=== PATIENT | female | born 1975 | race Caucasian/White ===

== ENCOUNTER 2016-10-05 14:36 | Inpatient (IN) | payer MEDICAID ==
[~2016-10-05] VITALS: Ht 170.2 cm; Wt 80.6 kg
[~2016-10-05 14:36] MED LIST: ALBU18 IN; ASPI81TA27 PO; CARV6.2551 PO; FURO40TA4 PO; IPRIH INH; LISI-275 PO; NITR0.4S29 SL; POTA8TAB2 PO; PRAV20TA3 PO
[2016-10-05] MEDS ORDERED: FUROSEMIDE 40 MG/4 ML VIAL IV ONE (15:15)
[2016-10-05 15:23] LABS: Basophils # (auto) 0 uL; Basophils % (auto) 0.6 % (0.0-2.0); Eosinophils # (auto) 0.1 uL; Eosinophils % (auto) 1.1 % (0.0-7.0); Hematocrit 39.6 % (36.0-46.0); Hemoglobin 13.2 g/dL (12.2-16.2); Lymphocytes # (auto) 2.1 uL; Lymphocytes % (auto) 24.4 % (10.0-50.0); Mean Corpuscular Hemoglobin 30.2 pg (28.0-32.0); Mean Corpuscular Hgb Conc. 33.3 g/dL (32.0-36.0); Mean Corpuscular Volume 90.7 fL (80.0-100.0); Mean Platelet Volume 7.1 fL (7.4-10.4); Monocytes # (auto) 0.8 uL; Monocytes % (auto) 9.2 % (0.0-12.0); Neutrophils # (auto) 5.5 uL; Neutrophils % (auto) 64.7 % (37.0-80.0); Platelet Count (auto) 325 10^3/uL (140-450); Red Cell Distribution Width 15.2 % (11.6-16.0); White Blood Cell 8.6 10^3/uL (4.4-10.8)
[2016-10-05 15:55] LABS: Albumin 3.1 g/dL (3.4-5.0); Anion Gap 9 (5-15); Aspartate Aminotransferase 15 U/L (15-37); BUN/Creatinine Ratio 20.6; Blood Urea Nitrogen 14 mg/dL (7-18); Calcium 8.4 mg/dL (8.5-10.1); Carbon Dioxide 28 mmol/L (21-32); Chloride 103 mmol/L (98-107); GFR African American 123 mL/min; GFR Non-African American 102 mL/min; Glucose 95 mg/dL (74-106); Potassium 3.9 mmol/L (3.5-5.1); Sodium 140 mmol/L (136-145)
[2016-10-05 16:00] LABS: Alkaline Phosphatase 62 U/L (45-117); Bilirubin, Total 0.3 mg/dL (0.2-1.0); Total Protein 7.2 g/dL (6.4-8.2)
[2016-10-05] MEDS ORDERED: PROMETHAZINE HCL 25 MG/ML 1ML IV PRN (16:00)
[2016-10-05] MEDS ORDERED: ACETAMINOPHEN 500 MG TAB PO PRN (16:00)
[2016-10-05] MEDS ORDERED: TEMAZEPAM 15 MG CAP PO PRN (16:00)
[2016-10-05] MEDS ORDERED: NITROGLYCERIN 0.4 MG SL TAB SL PRN (16:00)
[2016-10-05] MEDS ORDERED: ALBUTEROL SULFATE IN SCH (16:00)
[2016-10-05] MEDS ORDERED: LORazepam 0.5 MG TAB PO PRN (16:00)
[2016-10-05] MEDS ORDERED: HYDROcodone-ACET 5/325MG TAB PO PRN (16:00)
[2016-10-05] MEDS ORDERED: MORPHINE SULF INJ 2 MG/ML SYRINGE 1ML IV PRN ×2 (16:00)
[2016-10-05 16:03] LABS: B-Type Natriuretic Peptide 606.7 pg/mL (0-100); Temperature: 22.9 C (20.0-25.0)
[2016-10-05] MEDS ORDERED: ASPirin 81 mg TAB PO ONE (16:30)
[2016-10-05] MEDS ORDERED: LISINOPRIL 5 MG TAB PO ONE (16:30)
[2016-10-05] MEDS ORDERED: ENOXAPARIN SOD 40 MG/0.4 ML SYRINGE SC ONE (16:30)
[2016-10-05] MEDS: IPRATROPIUM BROM 0.5 MG/2.5ML INH SOL NEB SCH (18:00)
[2016-10-05] MEDS ORDERED: IPRATROPIUM BROMIDE INH SCH (18:00)
[2016-10-05] MEDS: ALBUTEROL SULF 2.5 MG/0.5ML(0.5%) NEB SOLN NEB SCH (18:00)
[2016-10-05 21:26] VITALS: BP 115/66
[2016-10-05] MEDS: POTASSIUM CHL 20 Meq TABLET PO SCH (21:49)
[2016-10-05] MEDS: SODIUM CHLOR 0.9% PF (SALINE LOCK) 10ML VIAL IV SCH (21:49)
[2016-10-05] MEDS: PRAVASTATIN SODIUM 20 MG TAB PO SCH (21:49)
[2016-10-05] MEDS: CARVEDILOL 3.125 MG TAB PO SCH (21:50)
[2016-10-05] MEDS ORDERED: PATIENTS OWN MEDICATION (Carvedilol 6.25 MG) PO SCH ×2 (22:00)
[2016-10-05] MEDS ORDERED: BUTACAP35 PO (22:56)
[2016-10-05] MEDS ORDERED: SACU1TAB7 PO (22:56)
[2016-10-05] MEDS ORDERED: FLUN0.02 (22:56)
[2016-10-05] MEDS ORDERED: MAGN250T8 PO (22:56)
[2016-10-05] MEDS ORDERED: TRAZ50TA2 PO (22:56)
[2016-10-05] MEDS ORDERED: CHOL20009 PO (22:56)
[2016-10-05] MEDS ORDERED: DIGO0.2570 PO (22:56)
[2016-10-05 23:03] VITALS: BP 101/67
[2016-10-06] VITALS (7 sets, daily range): BP systolic 93–108; BP diastolic 55–65
[2016-10-06] MEDS: IPRATROPIUM BROM 0.5 MG/2.5ML INH SOL NEB SCH ×4 (00:06→18:45)
[2016-10-06] MEDS: ALBUTEROL SULF 2.5 MG/0.5ML(0.5%) NEB SOLN NEB SCH ×4 (00:06→18:47)
[2016-10-06] MEDS: SODIUM CHLOR 0.9% PF (SALINE LOCK) 10ML VIAL IV SCH ×3 (05:23→22:00)
[2016-10-06 06:04] LABS: Basophils # (auto) 0.1 uL; Basophils % (auto) 0.8 % (0.0-2.0); Eosinophils # (auto) 0.1 uL; Hematocrit 36.3 % (36.0-46.0); Hemoglobin 12.1 g/dL (12.2-16.2); Lymphocytes # (auto) 2.1 uL; Lymphocytes % (auto) 33.2 % (10.0-50.0); Mean Corpuscular Hemoglobin 30.4 pg (28.0-32.0); Mean Corpuscular Hgb Conc. 33.2 g/dL (32.0-36.0); Mean Corpuscular Volume 91.7 fL (80.0-100.0); Mean Platelet Volume 7.4 fL (7.4-10.4); Monocytes # (auto) 0.6 uL; Monocytes % (auto) 9.4 % (0.0-12.0); Neutrophils # (auto) 3.4 uL; Neutrophils % (auto) 54.6 % (37.0-80.0); Platelet Count (auto) 270 10^3/uL (140-450); Red Cell Distribution Width 14.7 % (11.6-16.0); White Blood Cell 6.3 10^3/uL (4.4-10.8)
[2016-10-06 06:48] LABS: B-Type Natriuretic Peptide 401.37 pg/mL (0-100); Temperature: 22.5 C (20.0-25.0)
[2016-10-06] MEDS: LISINOPRIL 5 MG TAB PO SCH (09:28)
[2016-10-06] MEDS: CARVEDILOL 3.125 MG TAB PO SCH ×2 (09:29→22:35)
[2016-10-06] MEDS: ENOXAPARIN SOD 40 MG/0.4 ML SYRINGE SC SCH (09:30)
[2016-10-06] MEDS: FUROSEMIDE 40 MG/4 ML VIAL IV SCH (09:30)
[2016-10-06] MEDS: POTASSIUM CHL 20 Meq TABLET PO SCH ×2 (09:31→22:34)
[2016-10-06] MEDS: ASPirin 81 mg TAB PO SCH (09:31)
[2016-10-06] MEDS: DOBUTamine 1000MCG/ML 250 ML IV SCH (17:41)
[2016-10-06] MEDS: PRAVASTATIN SODIUM 20 MG TAB PO SCH (22:34)
[2016-10-07] VITALS (7 sets, daily range): BP systolic 98–114; BP diastolic 54–67
[2016-10-07] MEDS: IPRATROPIUM BROM 0.5 MG/2.5ML INH SOL NEB SCH ×4 (00:30→19:29)
[2016-10-07] MEDS: ALBUTEROL SULF 2.5 MG/0.5ML(0.5%) NEB SOLN NEB SCH ×4 (00:30→19:29)
[2016-10-07] MEDS: DOBUTamine 1000MCG/ML 250 ML IV SCH ×3 (04:56→22:39)
[2016-10-07] MEDS: SODIUM CHLOR 0.9% PF (SALINE LOCK) 10ML VIAL IV SCH ×3 (06:00→22:41)
[2016-10-07] MEDS: ASPirin 81 mg TAB PO SCH (09:30)
[2016-10-07] MEDS: POTASSIUM CHL 20 Meq TABLET PO SCH ×2 (09:30→22:41)
[2016-10-07] MEDS: ENOXAPARIN SOD 40 MG/0.4 ML SYRINGE SC SCH (09:31)
[2016-10-07] MEDS: FUROSEMIDE 40 MG/4 ML VIAL IV SCH (09:31)
[2016-10-07] MEDS: CARVEDILOL 3.125 MG TAB PO SCH ×2 (09:35→22:41)
[2016-10-07] MEDS: LISINOPRIL 5 MG TAB PO SCH (09:35)
[2016-10-07] MEDS: SPIRONOLACTONE 25 MG TAB PO SCH (13:49)
[2016-10-07 14:01] LABS: Urine RBC None Seen /hpf (0 - 4)
[2016-10-07 14:14] LABS: Urine Bilirubin Negative (Negative); Urine Blood Negative /uL (Negative); Urine Color Yellow (Yellow); Urine Glucose Normal (Normal); Urine Ketone Negative (Negative); Urine Nitrite Negative (Negative); Urine Squamous Epithelial Cell FEW /hpf (<5); Urine Urobilinogen Normal (Negative); Urine pH 6.5 (5.0-8.0)
[2016-10-07 15:47] LABS: Basophils # (auto) 0 uL; Basophils % (auto) 0.3 % (0.0-2.0); Eosinophils # (auto) 0.1 uL; Eosinophils % (auto) 0.6 % (0.0-7.0); Hematocrit 40.6 % (36.0-46.0); Hemoglobin 13.6 g/dL (12.2-16.2); Lymphocytes # (auto) 1.4 uL; Lymphocytes % (auto) 13.6 % (10.0-50.0); Mean Corpuscular Hemoglobin 30.7 pg (28.0-32.0); Mean Corpuscular Hgb Conc. 33.5 g/dL (32.0-36.0); Mean Corpuscular Volume 91.6 fL (80.0-100.0); Mean Platelet Volume 7.5 fL (7.4-10.4); Monocytes # (auto) 0.6 uL; Monocytes % (auto) 5.8 % (0.0-12.0); Neutrophils % (auto) 79.7 % (37.0-80.0); Platelet Count (auto) 348 10^3/uL (140-450); Red Cell Distribution Width 14.9 % (11.6-16.0); White Blood Cell 10.1 10^3/uL (4.4-10.8)
[2016-10-07 16:12] LABS: Potassium 3.9 mmol/L (3.5-5.1)
[2016-10-07 16:14] LABS: BUN/Creatinine Ratio 18.6
[2016-10-07] MEDS ORDERED: BACLOFEN 10 MG TAB PO PRN (16:30)
[2016-10-07 17:04] LABS: B-Type Natriuretic Peptide 212.53 pg/mL (0-100)
[2016-10-07 17:05] LABS: Temperature: 21.6 C (20.0-25.0)
[2016-10-07] MEDS: PRAVASTATIN SODIUM 20 MG TAB PO SCH (22:41)
[2016-10-08] MEDS: IPRATROPIUM BROM 0.5 MG/2.5ML INH SOL NEB SCH ×3 (00:04→11:36)
[2016-10-08] MEDS: ALBUTEROL SULF 2.5 MG/0.5ML(0.5%) NEB SOLN NEB SCH ×3 (00:04→11:36)
[2016-10-08 05:00] VITALS: BP 123/67
[2016-10-08] MEDS: SODIUM CHLOR 0.9% PF (SALINE LOCK) 10ML VIAL IV SCH (05:56)
[2016-10-08 06:06] LABS: Basophils # (auto) 0 uL; Basophils % (auto) 0.5 % (0.0-2.0); Eosinophils # (auto) 0.1 uL; Eosinophils % (auto) 1.1 % (0.0-7.0); Hematocrit 39.2 % (36.0-46.0); Lymphocytes % (auto) 29.8 % (10.0-50.0); Mean Corpuscular Hemoglobin 30.2 pg (28.0-32.0); Mean Corpuscular Volume 91.3 fL (80.0-100.0); Mean Platelet Volume 7.6 fL (7.4-10.4); Monocytes # (auto) 0.6 uL; Monocytes % (auto) 9.1 % (0.0-12.0); Neutrophils % (auto) 59.5 % (37.0-80.0); Platelet Count (auto) 305 10^3/uL (140-450); Red Cell Distribution Width 14.7 % (11.6-16.0); White Blood Cell 6.8 10^3/uL (4.4-10.8)
[2016-10-08 06:28] LABS: BUN/Creatinine Ratio 18.6; Calcium 8.9 mg/dL (8.5-10.1)
[2016-10-08 08:00] VITALS: BP 101/49
[2016-10-08 08:22] VITALS: BP 101/49
[2016-10-08 08:55] VITALS: BP 101/49
[2016-10-08] MEDS: ASPirin 81 mg TAB PO SCH (09:09)
[2016-10-08] MEDS: DOBUTamine 1000MCG/ML 250 ML IV SCH (09:09)
[2016-10-08] MEDS: ENOXAPARIN SOD 40 MG/0.4 ML SYRINGE SC SCH (09:09)
[2016-10-08] MEDS: SPIRONOLACTONE 25 MG TAB PO SCH (09:09)
[2016-10-08] MEDS: POTASSIUM CHL 20 Meq TABLET PO SCH (09:09)
[2016-10-08] MEDS: FUROSEMIDE 40 MG/4 ML VIAL IV SCH (09:10)
[2016-10-08] MEDS: CARVEDILOL 3.125 MG TAB PO SCH (09:14)
[2016-10-08] MEDS: LISINOPRIL 5 MG TAB PO SCH (09:14)
[2016-10-08 12:30] VITALS: BP 132/75
[2016-10-08] MEDS ORDERED: SPIR25TA88 PO (12:37)
[2016-10-08] MEDS ORDERED: FURO40TA PO (12:37)
[2016-10-08 13:04] VITALS: BP 132/75
== END 2016-10-08 13:30 | disposition home health service (06) | DRG 194 ==
LOC: ER 14:36 → TELE 14:37 → TELE-CENTR 20:52
PROVIDERS: ADMIT Internal Medicine; ATTEND Internal Medicine
DX: I11.0 Hypertensive heart disease with heart failure (principal); I42.9 Cardiomyopathy, unspecified; E78.5 Hyperlipidemia, unspecified; F17.210 Nicotine dependence, cigarettes, uncomplicated; I50.43 Acute on chronic combined systolic (congestive) and diastolic (congestive) heart failure; I34.1 Nonrheumatic mitral (valve) prolapse; Z95.810 Presence of automatic (implantable) cardiac defibrillator; Z83.3 Family history of diabetes mellitus; Z82.49 Family history of ischemic heart disease and other diseases of the circulatory system; Z88.1 Allergy status to other antibiotic agents; Z91.040 Latex allergy status
CPT/HCPCS: 36415; 71010; 80048; 80053; 81001; 82550; 83735; 83880; 84443; 84484; 85025; 85379; 85652; 93005; 94640; 94761; G0434

== ENCOUNTER 2016-12-06 13:03 | Inpatient (IN) | payer MEDICAID ==
[~2016-12-06] VITALS: Ht 170.2 cm; Wt 82.0 kg
[2016-12-06] VITALS (11 sets, daily range): BP systolic 85–106; BP diastolic 35–56
[~2016-12-06 13:03] MED LIST changes: +BUTACAP35 PO; +CHOL20009 PO; +DIGO0.2570 PO; +FLUN0.02; +FURO40TA PO; -FURO40TA4 PO; +MAGN250T8 PO; +SACU1TAB7 PO; +SPIR25TA88 PO; +TRAZ50TA2 PO
[2016-12-06] MEDS ORDERED: IBUPROFEN 800 MG TAB PO ONE ×2 (13:10→13:30)
[2016-12-06 13:50] LABS: Hematocrit 40.8 % (36.0-46.0); Hemoglobin 14.1 g/dL (12.2-16.2); Mean Corpuscular Hemoglobin 30.9 pg (28.0-32.0); Mean Corpuscular Hgb Conc. 34.6 g/dL (32.0-36.0); Mean Corpuscular Volume 89.3 fL (80.0-100.0); Mean Platelet Volume 7.4 fL (7.4-10.4); Platelet Count (auto) 331 10^3/uL (140-450); Red Cell Distribution Width 14.5 % (11.6-16.0); SUSPECT VIEW TRANSMISSION; White Blood Cell 25.7 10^3/uL (4.4-10.8)
[2016-12-06 13:56] LABS: Metamyelocytes % 0; Myelocytes % 0; Promyelocytes % 0; Reactive Lymphocytes 0
[2016-12-06 14:05] LABS: Albumin 3.3 g/dL (3.4-5.0); BUN/Creatinine Ratio 12.4; Calcium 8.6 mg/dL (8.5-10.1)
[2016-12-06 14:08] LABS: Bilirubin, Total 1.2 mg/dL (0.2-1.0); Total Protein 7.8 g/dL (6.4-8.2)
[2016-12-06 14:16] LABS: Urine Bilirubin Negative (Negative); Urine Blood TRACE /uL (Negative); Urine Color Yellow (Yellow); Urine Glucose Normal (Normal); Urine Ketone Negative (Negative); Urine Nitrite POSITIVE (Negative); Urine RBC 5 /hpf (0 - 4); Urine Squamous Epithelial Cell MOD /hpf (<5); Urine Urobilinogen Normal (Negative); Urine pH 7.5 (5.0-8.0)
[2016-12-06 14:59] LABS: Large Platelets FEW; Platelet Estimate Adequate; RBC Morphology Normal
[2016-12-06] MEDS ORDERED: SODIUM CHLORIDE 0.9% 1,000 ML IVB ONE (14:59)
[2016-12-06] MEDS ORDERED: cefTRIAXone 1GM/50ML D5W 50 ML IV ONE (15:00)
[2016-12-06] MEDS ORDERED: SODIUM CHLORIDE 0.9% 1,000 ML IV ONE (15:00)
[2016-12-06 15:28] LABS: INR 1.11 (0.9-1.15); Partial Thromboplastin Time 30.1 sec (22.64-33.71)
[2016-12-06 17:03] LABS: B-Type Natriuretic Peptide 1023.55 pg/mL (0-100); Temperature: 22.9 C (20.0-25.0)
[2016-12-06] MEDS ORDERED: PIPERACILLIN-TAZOB 3.375GM 100 ML IV ONE (17:45)
[2016-12-06] MEDS ORDERED: VANCOMYCIN 1GM/250ML D5W 250 ML IV ONE (18:00)
[2016-12-06] MEDS ORDERED: VANCOMYCIN PER PHARMACY 0 MG IV SCH (18:00)
[2016-12-06] MEDS ORDERED: ACETAMINOPHEN 500 MG TAB PO PRN (18:00)
[2016-12-06] MEDS ORDERED: NITROGLYCERIN 0.4 MG SL TAB SL PRN (18:00)
[2016-12-06] MEDS ORDERED: MORPHINE SULF INJ 2 MG/ML SYRINGE 1ML IV PRN ×2 (18:00)
[2016-12-06] MEDS ORDERED: PROMETHAZINE HCL 25 MG/ML 1ML IV PRN (18:00)
[2016-12-06] MEDS ORDERED: LACTULOSE 20Gm/30ML SOLN PO PRN (18:00)
[2016-12-06] MEDS: PIPERACILLIN-TAZOB 3.375GM 100 ML IV SCH (18:00)
[2016-12-06] MEDS: SODIUM CHLORIDE 0.9% 1,000 ML IV SCH (18:56)
[2016-12-06] MEDS: HYDROcodone-ACET 5/325MG TAB PO PRN (20:48)
[2016-12-07] VITALS (24 sets, daily range): BP systolic 85–146; BP diastolic 36–76
[2016-12-07] MEDS: PIPERACILLIN-TAZOB 3.375GM 100 ML IV SCH ×5 (01:08→22:59)
[2016-12-07] MEDS: DOPamine 1600MCG/ML 250 ML IV SCH ×2 (01:09→17:00)
[2016-12-07] MEDS: TEMAZEPAM 15 MG CAP PO PRN ×2 (01:27→20:16)
[2016-12-07] MEDS: HYDROcodone-ACET 5/325MG TAB PO PRN ×4 (01:28→20:16)
[2016-12-07] MEDS: VANCOMYCIN 1GM/250ML D5W 250 ML IV SCH ×2 (03:39→17:16)
[2016-12-07 03:49] LABS: Basophils # (auto) 0 uL; Eosinophils # (auto) 0 uL; Hematocrit 35.5 % (36.0-46.0); Lymphocytes # (auto) 0.3 uL; Mean Corpuscular Hemoglobin 31.2 pg (28.0-32.0); Mean Corpuscular Hgb Conc. 33.9 g/dL (32.0-36.0); Mean Platelet Volume 7.5 fL (7.4-10.4); Monocytes # (auto) 0.4 uL; Monocytes % (auto) 2.8 % (0.0-12.0); Neutrophils # (auto) 14.8 uL; Neutrophils % (auto) 95.2 % (37.0-80.0); Platelet Count (auto) 209 10^3/uL (140-450); Red Cell Distribution Width 14.5 % (11.6-16.0); White Blood Cell 15.5 10^3/uL (4.4-10.8)
[2016-12-07] MEDS: SODIUM CHLORIDE 0.9% 1,000 ML IV SCH (03:49)
[2016-12-07 04:01] LABS: Potassium 3.5 mmol/L (3.5-5.1)
[2016-12-07 04:06] LABS: Albumin 2.5 g/dL (3.4-5.0); BUN/Creatinine Ratio 12.5; Calcium 7.6 mg/dL (8.5-10.1)
[2016-12-07 04:08] LABS: Bilirubin, Total 0.7 mg/dL (0.2-1.0); Total Protein 6.2 g/dL (6.4-8.2)
[2016-12-07] MEDS: ENOXAPARIN SOD 40 MG/0.4 ML SYRINGE SC SCH (10:30)
[2016-12-07] MEDS: PANTOPRAZOLE 40 MG TAB PO SCH (10:35)
[2016-12-07] MEDS ORDERED: MAGNESIUM SULFATE 1GM/100ML 100 ML IV ONE (15:15)
[2016-12-07] MEDS ORDERED: DIGOXIN 0.25 MG TAB PO ONE (15:15)
[2016-12-07] MEDS ORDERED: SODIUM CHLORIDE 0.9% 1,000 ML IV SCH (17:49)
[2016-12-08] VITALS: BP 112/57
[2016-12-08 04:00] VITALS: BP 125/75
[2016-12-08 05:06] LABS: Basophils # (auto) 0 uL; Basophils % (auto) 0.2 % (0.0-2.0); Eosinophils # (auto) 0 uL; Eosinophils % (auto) 0.4 % (0.0-7.0); Hematocrit 35.5 % (36.0-46.0); Hemoglobin 11.9 g/dL (12.2-16.2); Lymphocytes # (auto) 1.5 uL; Lymphocytes % (auto) 14.2 % (10.0-50.0); Mean Corpuscular Hgb Conc. 33.7 g/dL (32.0-36.0); Mean Corpuscular Volume 91.9 fL (80.0-100.0); Mean Platelet Volume 8.3 fL (7.4-10.4); Monocytes # (auto) 0.7 uL; Monocytes % (auto) 6.6 % (0.0-12.0); Neutrophils # (auto) 8.1 uL; Neutrophils % (auto) 78.6 % (37.0-80.0); Platelet Count (auto) 209 10^3/uL (140-450); Red Cell Distribution Width 14.6 % (11.6-16.0); SUSPECT VIEW TRANSMISSION; White Blood Cell 10.3 10^3/uL (4.4-10.8)
[2016-12-08 05:19] LABS: BUN/Creatinine Ratio 10.5; Calcium 8.1 mg/dL (8.5-10.1); Potassium 3.7 mmol/L (3.5-5.1)
[2016-12-08] MEDS: VANCOMYCIN 1GM/250ML D5W 250 ML IV SCH ×3 (05:48→20:49)
[2016-12-08] MEDS: PIPERACILLIN-TAZOB 3.375GM 100 ML IV SCH ×4 (06:11→23:25)
[2016-12-08] MEDS: HYDROcodone-ACET 5/325MG TAB PO PRN ×2 (06:37→18:11)
[2016-12-08 08:00] VITALS: BP 113/64
[2016-12-08] MEDS: DOPamine 1600MCG/ML 250 ML IV SCH (09:26)
[2016-12-08] MEDS: DIGOXIN 0.25 MG TAB PO SCH (09:50)
[2016-12-08] MEDS: PANTOPRAZOLE 40 MG TAB PO SCH (09:50)
[2016-12-08] MEDS: ENOXAPARIN SOD 40 MG/0.4 ML SYRINGE SC SCH (09:51)
[2016-12-08] MEDS ORDERED: SODIUM CHLORIDE 0.9% 1,000 ML IV SCH (10:58)
[2016-12-08] MEDS: LORazepam 0.5 MG TAB PO PRN ×2 (11:45→23:24)
[2016-12-08 12:00] VITALS: BP 107/69
[2016-12-08] MEDS ORDERED: NICOTINE 21MG/24 HR TOPICAL PATCH TD ONE (15:45)
[2016-12-08 16:00] VITALS: BP 115/76
[2016-12-08 20:00] VITALS: BP 111/58
[2016-12-08] MEDS: TEMAZEPAM 15 MG CAP PO PRN (23:24)
[2016-12-09] VITALS: BP 117/76
[2016-12-09 04:04] VITALS: BP 110/81
[2016-12-09] MEDS: HYDROcodone-ACET 5/325MG TAB PO PRN ×2 (04:17→11:09)
[2016-12-09 05:04] LABS: Basophils # (auto) 0 uL; Basophils % (auto) 0.4 % (0.0-2.0); Eosinophils # (auto) 0 uL; Eosinophils % (auto) 0.2 % (0.0-7.0); Hematocrit 36.7 % (36.0-46.0); Hemoglobin 12.4 g/dL (12.2-16.2); Lymphocytes # (auto) 2.1 uL; Lymphocytes % (auto) 29.2 % (10.0-50.0); Mean Corpuscular Hemoglobin 30.9 pg (28.0-32.0); Mean Corpuscular Hgb Conc. 33.7 g/dL (32.0-36.0); Mean Corpuscular Volume 91.7 fL (80.0-100.0); Mean Platelet Volume 7.8 fL (7.4-10.4); Monocytes # (auto) 0.6 uL; Monocytes % (auto) 8.1 % (0.0-12.0); Neutrophils # (auto) 4.4 uL; Neutrophils % (auto) 62.1 % (37.0-80.0); Platelet Count (auto) 205 10^3/uL (140-450); Red Cell Distribution Width 14.3 % (11.6-16.0); White Blood Cell 7.1 10^3/uL (4.4-10.8)
[2016-12-09] MEDS: VANCOMYCIN 1GM/250ML D5W 250 ML IV SCH ×3 (05:36→22:00)
[2016-12-09] MEDS: PIPERACILLIN-TAZOB 3.375GM 100 ML IV SCH ×3 (06:04→17:54)
[2016-12-09 08:22] VITALS: BP 114/69
[2016-12-09] MEDS: DIGOXIN 0.25 MG TAB PO SCH (09:56)
[2016-12-09] MEDS: ENOXAPARIN SOD 40 MG/0.4 ML SYRINGE SC SCH (09:57)
[2016-12-09] MEDS: PANTOPRAZOLE 40 MG TAB PO SCH (09:57)
[2016-12-09] MEDS: NICOTINE 21MG/24 HR TOPICAL PATCH TD SCH (09:58)
[2016-12-09 11:53] VITALS: BP 113/71
[2016-12-09] MEDS: LORazepam 0.5 MG TAB PO PRN (15:23)
[2016-12-09 16:17] VITALS: BP 103/66
[2016-12-09] MEDS: HYDROcodone-ACET 10/325MG TAB PO PRN (19:50)
[2016-12-09 20:00] VITALS: BP 117/73
[2016-12-10] VITALS: BP 94/54
[2016-12-10] MEDS: PIPERACILLIN-TAZOB 3.375GM 100 ML IV SCH ×3 (00:30→12:31)
[2016-12-10 04:00] VITALS: BP 101/57
[2016-12-10] MEDS: HYDROcodone-ACET 10/325MG TAB PO PRN ×2 (04:42→12:32)
[2016-12-10] MEDS: LORazepam 0.5 MG TAB PO PRN (04:42)
[2016-12-10] MEDS: VANCOMYCIN 1GM/250ML D5W 250 ML IV SCH ×2 (04:44→13:00)
[2016-12-10 06:19] LABS: Potassium 3.3 mmol/L (3.5-5.1)
[2016-12-10 06:23] LABS: Calcium 8.2 mg/dL (8.5-10.1)
[2016-12-10 07:57] VITALS: BP 105/61
[2016-12-10] MEDS: ENOXAPARIN SOD 40 MG/0.4 ML SYRINGE SC SCH (10:08)
[2016-12-10] MEDS: PANTOPRAZOLE 40 MG TAB PO SCH (10:08)
[2016-12-10] MEDS: DIGOXIN 0.25 MG TAB PO SCH (10:08)
[2016-12-10] MEDS: NICOTINE 21MG/24 HR TOPICAL PATCH TD SCH (10:08)
[2016-12-10 11:55] VITALS: BP 113/66
[2016-12-10] MEDS ORDERED: NOR5T PO (14:43)
[2016-12-10] MEDS ORDERED: LEVO500T3 PO (14:43)
[2016-12-10 15:00] VITALS: BP 113/66
[2016-12-10 15:54] VITALS: BP 123/69
== END 2016-12-10 16:00 | disposition home or self-care (01) | DRG 720 ==
LOC: ER 13:03 → TELE 13:04 → ICU WEST 21:09 → DOU IN ICU 12-07 20:04
PROVIDERS: ADMIT Internal Medicine; ATTEND Internal Medicine
DX: A41.01 Sepsis due to Methicillin susceptible Staphylococcus aureus (principal); N17.0 Acute kidney failure with tubular necrosis; I50.43 Acute on chronic combined systolic (congestive) and diastolic (congestive) heart failure; I11.0 Hypertensive heart disease with heart failure; N39.0 Urinary tract infection, site not specified; E78.5 Hyperlipidemia, unspecified; F19.10 Other psychoactive substance abuse, uncomplicated; E87.1 Hypo-osmolality and hyponatremia; F17.210 Nicotine dependence, cigarettes, uncomplicated; R07.9 Chest pain, unspecified; I42.0 Dilated cardiomyopathy; Z82.49 Family history of ischemic heart disease and other diseases of the circulatory system; Z83.3 Family history of diabetes mellitus; Z95.810 Presence of automatic (implantable) cardiac defibrillator; Z88.1 Allergy status to other antibiotic agents; Z91.040 Latex allergy status
CPT/HCPCS: 36415; 71010; 80048; 80053; 80162; 80202; 80307; 81001; 81025; 83605; 83735; 83880; 84484; 85007; 85025; 85027; 85610; 85652; 85730; 87040; 87077; 87081; 87086; 87088; 87147; 87186; 93005; 93306; 94761; 96365; 96375; J0696; J2543

== ENCOUNTER 2017-11-30 00:58 | Emergency (ER) | payer MEDICAID ==
[~2017-11-30] VITALS: Ht 170.2 cm; Wt 72.6 kg
[~2017-11-30 00:58] MED LIST changes: +HYDR-4683 PO; +LEVO500T21 PO
[2017-11-30 01:07] VITALS: BP 112/54
[2017-11-30 01:58] LABS: Basophils # (auto) 0.1 uL; Basophils % (auto) 0.9 % (0.0-2.0); Eosinophils # (auto) 0.3 uL; Eosinophils % (auto) 4.1 % (0.0-7.0); Hematocrit 42.4 % (36.0-46.0); Hemoglobin 14.4 g/dL (12.2-16.2); Lymphocytes # (auto) 2.2 uL; Lymphocytes % (auto) 31.7 % (10.0-50.0); Mean Corpuscular Volume 94.1 fL (80.0-100.0); Monocytes # (auto) 0.6 uL; Monocytes % (auto) 8.9 % (0.0-12.0); Neutrophils # (auto) 3.8 uL; Neutrophils % (auto) 54.4 % (37.0-80.0); Nucleated Red Blood Cells % 0.1 %; Platelet Count (auto) 230 10^3/uL (140-450); Red Blood Cells 4.51 10^6/uL (4.0-5.20); White Blood Cell 6.9 10^3/uL (4.4-10.8)
[2017-11-30 02:11] LABS: INR 0.94 (0.9-1.15); Partial Thromboplastin Time 25.4 sec (22.64-33.71); Prothrombin Time 10.2 sec (9.37-12.3)
[2017-11-30 02:17] LABS: Alanine Aminotransferase 37 U/L (13-56); Albumin 3.3 g/dL (3.4-5.0); Anion Gap 7 (5-15); Aspartate Aminotransferase 34 U/L (15-37); BUN/Creatinine Ratio 12.5; Blood Urea Nitrogen 10 mg/dL (7-18); Calcium 8.6 mg/dL (8.5-10.1); Carbon Dioxide 30 mmol/L (21-32); Chloride 99 mmol/L (98-107); GFR African American 101 mL/min; GFR Non-African American 84 mL/min; Glucose 77 mg/dL (74-106); Magnesium 2.5 mg/dL (1.6-2.6); Potassium 3.7 mmol/L (3.5-5.1); Sodium 136 mmol/L (136-145)
[2017-11-30 02:43] LABS: Alkaline Phosphatase 100 U/L (45-117); Bilirubin, Total 0.3 mg/dL (0.2-1.0); Total Protein 8.7 g/dL (6.4-8.2)
== END 2017-11-30 06:41 | disposition left against medical advice (07) ==
LOC: EDUNIT# 00:58 → ER 00:58 → EDBD 00:58 → ER 06:41
DX: R07.9 Chest pain, unspecified (principal); F41.9 Anxiety disorder, unspecified; Z53.21 Procedure and treatment not carried out due to patient leaving prior to being seen by health care provider
CPT/HCPCS: 36415; 80053; 83735; 84484; 85025; 85610; 85730; 93005

== ENCOUNTER → 2018-01-08 | Outpatient (CLI) | payer MEDICAID | END | disposition home or self-care (01) | LOC: Rad HDHVI 15:52 | PROVIDERS: ATTEND Internal Medicine | DX: I08.1 Rheumatic disorders of both mitral and tricuspid valves (principal); I11.0 Hypertensive heart disease with heart failure; I50.23 Acute on chronic systolic (congestive) heart failure; E11.9 Type 2 diabetes mellitus without complications; I50.20 Unspecified systolic (congestive) heart failure; I42.9 Cardiomyopathy, unspecified; F41.9 Anxiety disorder, unspecified; E78.5 Hyperlipidemia, unspecified; Z79.899 Other long term (current) drug therapy | CPT/HCPCS: 93306 ==

== ENCOUNTER 2019-01-29 08:31 | Emergency (ER) | payer MEDICAID ==
[~2019-01-29] VITALS: Ht 175.3 cm; Wt 95.3 kg
[~2019-01-29 08:31] MED LIST changes: +ASPI-404 PO; -ASPI81TA27 PO; +FURO1TAB31 PO; -FURO40TA PO; -HYDR-4683 PO; +HYDR-4833 PO
[2019-01-29] MEDS ORDERED: SODIUM BICARBONATE 8.4% INJ 50ML SYRINGE IV ONE (08:32)
[2019-01-29] MEDS ORDERED: CALCIUM CHLOR(10%) 100MG/ML 10ML SYRINGE IV ONE (08:32)
[2019-01-29] MEDS ORDERED: EPINEPHrine HCL 1 MG/10 ML SYRG IV ONE (08:32)
[2019-01-29] MEDS ORDERED: NALOXONE HCL 1MG/ML 2ML SYRINGE IV ONE (08:32)
[2019-01-29] MEDS ORDERED: SODIUM BICARBONATE 8.4% INJ 50ML SYRINGE ONE (08:39)
[2019-01-29] MEDS ORDERED: EPINEPHrine HCL 1 MG/10 ML SYRG ONE ×3 (08:40→08:45)
== END 2019-01-29 08:49 | disposition expired ==
LOC: EDBD 08:31 → EDUNIT# 08:31 → ER 08:31 → EDSEX 08:31 → ER 08:49
DX: T40.1X1A Poisoning by heroin, accidental (unintentional), initial encounter (principal); I46.9 Cardiac arrest, cause unspecified; F17.210 Nicotine dependence, cigarettes, uncomplicated; I50.9 Heart failure, unspecified; Z95.0 Presence of cardiac pacemaker; Z88.1 Allergy status to other antibiotic agents; Z91.040 Latex allergy status; Z79.899 Other long term (current) drug therapy; Y92.89 Other specified places as the place of occurrence of the external cause
CPT/HCPCS: 92950; 99285; J0171; J2310